=== PATIENT | female | born 1965 | race Caucasian/White ===

== ENCOUNTER 2018-05-19 14:31 | Outpatient (CLI) | payer BC | END 2018-05-19 14:32 | disposition home or self-care (01) | LOC: BICULT 14:31 | PROVIDERS: ATTEND Internal Medicine Hematology & Oncology | DX: C83.04 Small cell B-cell lymphoma, lymph nodes of axilla and upper limb (principal); Z15.09 Genetic susceptibility to other malignant neoplasm | CPT/HCPCS: 76999 ==

== ENCOUNTER 2020-06-13 11:25 | Emergency (ER) | payer BC | END 2020-06-13 14:25 | disposition left against medical advice (07) | LOC: ERS 11:25 | DX: Z53.21 Procedure and treatment not carried out due to patient leaving prior to being seen by health care provider (principal) ==

== ENCOUNTER 2020-09-25 08:06 | Outpatient (CLI) | payer BC, OTHER ==
[2020-09-25 15:59] LABS: #Eosinphils 0.3 thou/uL (0.0-0.7); #Lymphocytes 1.9 thou/uL (1.20-3.40); %Basophils 0.4 % (0.0-1.0); %Eosinophils 2.6 % (0.0-10.0); %Lymphocytes 18.8 % (21.0-51.0); %Monocytes 9.5 % (0.0-10.0); %Neutrophils 68.7 % (42.0-75.0); Hemoglobin 14.5 g/dL (12.0-16.0); Mean Corpuscular HGB CONC 32.1 g/dL (32.0-36.0); Mean Corpuscular Hemoglobin 29.4 pg (27.0-31.0); Mean Corpuscular Volume 91.4 fL (78.0-98.0); Mean Platelet Volume 6.8 fL (7.4-10.4); Platelet Count 505 thou/uL (130-400); RBC Distribution Width 14.3 % (11.5-14.5); Red Blood Cell (RBC) Count 4.94 mill/uL (4.20-5.40); White Blood Cell (WBC) Count 10.2 thou/uL (4.8-10.8)
[2020-09-25 16:11] LABS: ALT (SGPT) 20 U/L (8-55); AST (SGOT) 18 U/L (5-34); Albumin 4.5 g/dL (3.5-5.0); Alkaline Phosphatase 72 U/L (40-110); Anion Gap 15 mmol/L (10-20); BUN (Urea Nitrogen) 12 mg/dL (9.8-20.1); Bilirubin, Total 0.3 mg/dL (0.2-1.2); Calc. Creatinine Clearance 0 mL/min (70-130); Carbon Dioxide 23 mmol/L (22-29); Chloride 104 mmol/L (98-107); Estimated GFR-MDRD 75; Globulin 2.5 g/dL (2.4-3.5); Glucose 89 mg/dL (70-105); Potassium 4.5 mmol/L (3.5-5.1); Sodium 137 mmol/L (136-145)
[2020-09-26 10:31] LABS: SARS-CoV-2 MS2 Positive; SARS-CoV-2 N Gene Negative; SARS-CoV-2 S Gene Negative; SARS-CoV-2 by NAA Not Detected (NotDetected); SARS-CoV-2 orf1ab Negative
== END 2020-09-25 08:07 | disposition home or self-care (01) ==
LOC: LABBT 08:06
PROVIDERS: ATTEND Plastic Surgery
DX: Z01.818 Encounter for other preprocedural examination (principal); Z20.828 Contact with and (suspected) exposure to other viral communicable diseases; K42.9 Umbilical hernia without obstruction or gangrene
CPT/HCPCS: 80053; 85025; 87635; 93005; 93010; U0003

== ENCOUNTER 2020-09-28 09:27 | Day surgery (SDC) | payer BC ==
[2020-09-27 11:00] VITALS: BMI 26.5
[2020-09-28] MEDS ORDERED: Heparin 5,000 UNITS/ML VIAL ONE (09:56)
[2020-09-28] MEDS ORDERED: diphenhydrAMINE 50 MG/ML VIAL ONE (10:01)
[2020-09-28] MEDS ORDERED: Dexamethasone 20 MG/5 ML VIAL ONE (10:01)
[2020-09-28] MEDS ORDERED: Ondansetron PF 4 MG/2 ML Vial ONE (10:01)
[2020-09-28] MEDS ORDERED: PHENYLEPHRINE-NS 100 MCG/ML 10 ML SYRINGE ONE (10:01)
[2020-09-28] MEDS ORDERED: EPHEDRINE 25 MG/5 ML SYRINGE ONE (10:01)
[2020-09-28] MEDS ORDERED: Lidocaine 1% PF 5 ML VIAL ONE (10:01)
[2020-09-28] MEDS ORDERED: Rocuronium Bromide 10 MG/ML (10ML VIAL) ONE (10:01)
[2020-09-28] MEDS ORDERED: PROPOFOL 200 MG/20 ML VIAL ONE (10:01)
[2020-09-28] MEDS ORDERED: Bupivacaine/Epinephrine 0.25% 30 ML VIAL ONE (10:44)
[2020-09-28] MEDS ORDERED: Gentamicin 80 MG/2 ML VIAL ONE (10:44)
[2020-09-28] MEDS ORDERED: EPINEPHrine 1 MG/ML AMP ONE (11:15)
[2020-09-28] MEDS ORDERED: Bupivacaine PF 0.5% 30 ML VIAL ONE (11:15)
[2020-09-28] MEDS ORDERED: Fentanyl 250 MCG/5 ML VIAL ONE (11:22)
[2020-09-28] MEDS ORDERED: Midazolam HCl 2 mg/2 ml Vial ONE (12:01)
--- NOTE | 2020-09-28 13:21 | OP ---
DATE OF PROCEDURE: 09/28/2020 PREOPERATIVE DIAGNOSIS: Umbilical hernia PROCEDURE PERFORMED: Umbilical hernia repair with mesh. INDICATIONS: The patient is a 55-year-old female with an enlarging umbilical hernia. FINDINGS: 1.5 cm defect. DESCRIPTION OF PROCEDURE: After informed consent was obtained, the patient was taken to the operating room, given general endotracheal anesthesia, placed in supine position. Abdomen was prepped and draped in usual fashion. Local anesthesia was infiltrated subcutaneously and deep, and a subumbilical incision was performed, subcu divided sharply. The hernia sac was dissected from the skin down to the fascia sharply. The hernia sac removed. The contents were just some fat that was reduced. The defect was 1.5 cm. A 6.4 cm mesh was inserted. The wings were sutured to the fascia with interrupted 0 Ethibond. Then, the umbilical skin was sutured to the fascia with interrupted 3-0 Vicryl. Skin closed with interrupted 4-0 Rapide. Steri-Strips applied. Sterile bandage applied. The patient tolerated the procedure well, transferred to Recovery in good condition. Sponge and needle count verified correct x2. Job ID: [id number]
[2020-09-28] MEDS ORDERED: SUGAMMADEX SODIUM 200 MG/2 ML VIAL ONE (14:07)
[2020-09-28] MEDS ORDERED: Fentanyl 100 MCG/2 ML VIAL ONE (15:32)
[2020-09-28] MEDS ORDERED: HYDROcodone/Acetaminophen 5/325 mg Tablet ONE (16:47)
--- NOTE | 2020-09-28 17:31 | OP ---
DATE OF PROCEDURE: 09/28/2020 PREOPERATIVE DIAGNOSES: 1. History of breast cancer. 2. Status post bilateral breast reconstruction. 3. Asymmetry of breast reconstruction. 4. Disproportion of breast reconstruction. PROCEDURES PERFORMED: 1. Bilateral exchange of implants. 2. Fat grafting right breast (60 mL). DESCRIPTION OF PROCEDURE: Following induction of adequate anesthesia, the patient was prepped and draped in the usual sterile fashion in the supine position. The patient previously undergone an umbilical hernia repair by Dr. Balderas. Please see his note for further details. Attention was 1st turned to the right breast. An inframammary crease incision was made. Dissection was carried sharply through the subcutaneous tissue to the underlying capsule, which was incised. A McGhan textured anatomic 530 mL implant was removed. The pocket was inspected. In order to go up with the size change as the patient desired, a circumferential capsulotomies were made at the reflection of the check chest wall. Then, radially, capsulotomies were made with some machine design checker-boarding of the patient's capsule to allow for adequate expansion. The pocket was then irrigated with hypochlorite solution followed by antibiotic solution followed by dilute Betadine and antibiotic solution. A skin barrier was placed. A new gloves were donned prior to placement of 800 mL of [place] Ultra High Profile implants. The pocket was closed using 2-0 PDS suture for the capsule followed by 3-0 PDS suture and 3-0 Monocryl suture for the skin. A similar procedure was done on each side. Attention was turned to the fat grafting. Tumescent fluid was infiltrated into the anterior abdominal wall with care being taken to avoid the umbilicus. After this had adequate time to take effect, a traditional liposuction was done, harvesting the fat into a mucus trap. This was transferred to syringes and allowed to separate. The fat was then decanted and injected using a micro droplet technique into the upper lateral and medial quadrants of the right breast to give a more symmetric result. This was done through a stab incision. The stab incisions for the lipoma and the fat grafting were closed with 5-0 fast gut suture. The patient tolerated the procedure well. Job ID: [id number]
== END 2020-09-28 17:05 | disposition home or self-care (01) ==
LOC: SDC 09:27
PROVIDERS: ATTEND Plastic Surgery
PROC: 0WQF0ZZ Repair Abdominal Wall, Open Approach (ICD-10-PCS; principal; 2020-09-28)
PROC: 0JD63ZZ Extraction of Chest Subcutaneous Tissue and Fascia, Percutaneous Approach (ICD-10-PCS; principal; 2020-09-28)
DX: N65.0 Deformity of reconstructed breast (principal); K42.9 Umbilical hernia without obstruction or gangrene; M19.079 Primary osteoarthritis, unspecified ankle and foot; Z79.84 Long term (current) use of oral hypoglycemic drugs; Z79.899 Other long term (current) drug therapy; Z85.3 Personal history of malignant neoplasm of breast; Z87.891 Personal history of nicotine dependence; Z91.011 Allergy to milk products; Z91.012 Allergy to eggs
CPT/HCPCS: J0171; J0690; J1100; J1200; J1580; J1644; J2250; J2405; J2704; J3010; J3370; J3490; S0020

== ENCOUNTER 2021-02-27 12:43 | Outpatient (CLI) | payer BC ==
[2021-02-27] MEDS ORDERED: Lidocaine 1% PF 10 ML AMP ONE (13:20)
[2021-02-27] MEDS ORDERED: Iopamidol 300 61% 50 ML VIAL FS ONE (13:20)
[2021-02-27] MEDS ORDERED: EPINEPHrine 1 MG/ML AMP ONE (13:20)
[2021-02-27] MEDS ORDERED: Gadobenate Dimeglumine 529 MG/1 ML (20ML VIAL) ONE (13:20)
== END 2021-02-27 12:44 | disposition home or self-care (01) ==
LOC: RAD 12:43
PROVIDERS: ATTEND Orthopaedic Surgery
DX: M25.551 Pain in right hip (principal); S76.011A Strain of muscle, fascia and tendon of right hip, initial encounter; S73.101A Unspecified sprain of right hip, initial encounter; M16.11 Unilateral primary osteoarthritis, right hip; M76.9 Unspecified enthesopathy, lower limb, excluding foot
CPT/HCPCS: 27093; A9577; J0171; J2001; Q9967

== ENCOUNTER 2024-01-27 13:23 | Outpatient (CLI) | payer BC | END 2024-01-27 13:24 | disposition home or self-care (01) | LOC: SCSMRI 13:23 | PROVIDERS: ATTEND Ophthalmology | DX: H05.232 Hemorrhage of left orbit (principal); H05.242 Constant exophthalmos, left eye; D32.0 Benign neoplasm of cerebral meninges; H05.20 Unspecified exophthalmos; G93.89 Other specified disorders of brain; Z98.890 Other specified postprocedural states | CPT/HCPCS: 70543; 82565 ==